=== PATIENT | female | born 1985 ===

== ENCOUNTER 2019-07-31 23:12 | Emergency (ER) | payer SELFPAY ==
[~2019-07-31] VITALS: Ht 167.6 cm; Wt 104.3 kg
[2019-07-31 23:21] VITALS: Ht 167.6 cm; Wt 104.3 kg
[2019-08-01 00:44] LABS: AMPHETAMINE QUAL UR NONE DETECTED (See below)
[2019-08-01 01:27] LABS: BASOPHIL % 0.3 % (0-2); PLATELET COUNT 308 x10^3mcL (130-400); RED CELL DISTRIBUTION WIDTH 13.2 % (11.5-14.5)
[2019-08-01 01:38] LABS: CARBON DIOXIDE 26.9 mmol/L (21-32); CHLORIDE SERUM 105 mmol/L (98-107); CREATININE SERUM 0.8 mg/dL (0.6-1.0); GFR1 > 60 mL/min; GLUCOSE SERUM 115 mg/dL (74-106); POTASSIUM SERUM 3.2 mmol/L (3.5-5.1); SODIUM SERUM 142 mmol/L (136-145); TOTAL PROTEIN, SERUM 7.6 g/dL (6.4-8.2)
[2019-08-01 01:39] LABS: ALBUMIN 3.9 g/dL (3.4-5.0); ALKALINE PHOSPHATASE 114 U/L (46-116); ALT/SGPT 20 U/L (14-59); AST/SGOT 19 U/L (15-37); BILIRUBIN TOTAL 0.3 mg/dL (0.20-1.00); CALCIUM 8.1 mg/dL (8.5-10.1)
[2019-08-01 13:40] VITALS: BP 101/53
== END 2019-08-01 13:40 | disposition home or self-care (01) ==
LOC: ED 23:12
PROVIDERS: Emergency Medicine
DX: F23 Brief psychotic disorder (principal); Z59.0 Homelessness
CPT/HCPCS: 36415; G0480; J1200; J1630; J2060